=== PATIENT | male | born 1990 | race African-American/Black ===

== ENCOUNTER 2016-12-23 17:18 | Inpatient (IN) | payer OTHER ==
[~2016-12-23] VITALS: Ht 180.3 cm; Wt 81.3 kg
[~2016-12-23 17:18] MED LIST: FLAG500T PO; IBUP100SUS PO; PENI50TA PO; PERCOCET PO; [UNRECOGNIZED DRUG - CODE] PO
[2016-12-23] MEDS ORDERED: METH1CHW3 PO (17:53)
[2016-12-23] MEDS ORDERED: VICO7.5T11 PO (17:53)
[2016-12-23] MEDS ORDERED: CITA20TA4 PO (17:53)
[2016-12-23] MEDS ORDERED: METH20TA29 PO (22:50)
[2016-12-23] MEDS ORDERED: HYDR-3713 PO (22:50)
[2016-12-24 00:44] VITALS: BP 126/68
[2016-12-24] MEDS ORDERED: MAALOX 30 ML SUSP *UDC PO PRN (01:45)
[2016-12-24] MEDS ORDERED: MOM 30ML SUSPENSION UDC PO PRN (01:45)
[2016-12-24] MEDS ORDERED: ACETAMINOPHEN TAB 650MG DOSE (2X325MG) PO PRN (01:45)
[2016-12-24 18:00] VITALS: BP 136/60
[2016-12-24] MEDS: NORCO, ANEXSIA 5/325MG TABLET (HYDROcodone/ACETAMINOPHEN) PO PRN (18:11)
[2016-12-24] MEDS ORDERED: NICOTINE 21MG/24HR 1 EA TRANSDERMAL TD ONE (20:00)
[2016-12-24] MEDS: traZODone 50 MG TAB PO PRN (23:02)
[2016-12-25 06:22] VITALS: BP 184/78
[2016-12-25] MEDS: NICOTINE 21MG/24HR 1 EA TRANSDERMAL TD SCH (08:35)
[2016-12-25] MEDS: LOTRISONE CREAM 15 GM (BETAMETH/CLOTRIMAZOLE) TOP SCH ×2 (08:35→22:15)
[2016-12-25] MEDS: NORCO, ANEXSIA 5/325MG TABLET (HYDROcodone/ACETAMINOPHEN) PO PRN ×2 (08:36→19:25)
[2016-12-25 18:00] VITALS: BP 130/18
--- NOTE | 2016-12-25 22:07 | MHHPE ---
DATE OF ADMISSION: 12/23/2016 DATE OF EVALUATION: 12/24/2016 HISTORY OF PRESENT ILLNESS: This is a 26-year-old man who was admitted. He presented to the emergency room complaining of feeling depressed and having suicidal ideation. The patient presented to the emergency room stating that he had met with Child Protective Services, had it assigned for 2-1/2 weeks ago. It did not go his way because after that he inhaled a bottle of nitrogen to kill himself. He never sought evaluation for that. He says that on the day of admission he went back to court again and at that point again things did not go his way and he said he started to have similar thoughts of harming himself. He was noted to be very guarded, particularly Child Protective Services (CPS) details. Apparently, there is an order of protection regarding his children. Today, he is very guarded and he gives very minimal detail. He was actually lying in bed and then finally he did answer some of my questions, but he was very guarded and would not give any details. He was angry and stated " I just want to go home." He is minimizing everything stating that he never said that he was depressed and he just went to the emergency room to talk to somebody. I could not further get him to elaborate on any more symptoms. I did not seem to elicit any hypomanic or manic-like symptoms in this patient or posttraumatic stress disorder (PTSD) symptoms or obsessive-compulsive disorder (OCD) or panic symptoms. PAST PSYCHIATRIC HISTORY: The patient has never had prior psychiatric hospitalization. He says that he has a history of being treated for attention deficit hyperactivity disorder in the past and I did find records, some which showed that he was seen in 2003 at [facility] by child psychiatrist, Dr. Bob. Attention deficit hyperactivity disorder and oppositional defiant disorder. He was 13 at the time. Currently, he says that he does not see any psychiatrist. He says his primary care provider, Dr. María Elena Bello, treats him for his attention deficit hyperactivity disorder (ADHD) and he is on Adderall. He also states that he is on Celexa 20 mg daily and that was just recently started within this week. The patient says that other than the inhalation of the bottle of nitrogen noted above, which he said in the emergency room was a suicidal attempt, that he has never made any other suicidal attempts. FAMILY HISTORY: There is no psychiatric history in the family and there are no suicidal attempts. MEDICAL HISTORY: The patient says he has chronic back pain and he is prescribed Vicodin by his primary care provider, Dr. María Elena Bello. I did see the sheet from [facility] which showed that on 12/16 he was given a prescription for Vicodin to take it twice a day and he was given #60. ABUSE HISTORY: The patient denies any history of any physical or sexual abuse. SUBSTANCE ABUSE HISTORY: I pointed out to the patient that his toxicology screen was positive for opiate and cocaine and he says "that was only yesterday" that he had used. I do not know how reliable he is being at this point. REVIEW OF SYSTEMS: VITAL SIGNS: Blood pressure 125/68, pulse 56, respirations 20, temperature 97.5. APPEARANCE: Patient was lying in bed with sheets covering him and then eventually he did sit up for a brief period. Hygiene appeared to be fairly intact. NEUROMUSCULAR SYSTEM: I did not observe the gait, but there were no involuntary movements in this patient. All other systems were reviewed and found to be negative. MENTAL STATUS EXAMINATION: This patient is alert and oriented times three. Eye contact is fair. Psychomotor activity is decreased. There is no formal thought disorder noted. His mood is fine. His affect is flat. He is not psychotic. He denies suicidal ideation. I do not know how reliable he is because he is pressing for his discharge. Denying homicidal ideation. His concentration is fair. Memory is intact. Insight and judgment is poor. DIAGNOSES: 1. Adjustment disorder with depressed mood. 2. Suicidal ideations, rule out major depressive disorder. 3. Rule out stimulant use disorder (cocaine). 4. Chronic back pain. TREATMENT PLAN: At this point, the patient will be further observed for suicidal ideations, which he is denying now. He will be monitored for depressive symptoms and hopefully elevated symptoms of depression. We will continue the patient's Celexa 20 mg daily as this was just written. We will continue to monitor him for suicidal ideations, which he is denying now, but I do not know how reliable he is. Right now, the plan will be to discharge him with appropriate followup once stable. DOROTA
--- NOTE | 2016-12-25 22:09 | HPE ---
DATE OF ADMISSION: 12/25/2016 Please refer to the psychiatric history and evaluation for further details on this admission. This examination and history is intended for medical issues which may need treatment, followup, or consult on this 26-year-old male. ALLERGIES: No known drug allergies. PRIMARY CARE PROVIDER: Dr. María Elena Bello. SOCIAL HISTORY: He is single. He lives alone. Ethyl alcohol (EtOH) on weekends. Smokes one-half to one pack of cigarettes per day. Recreational drug use. He used cocaine a couple of times, the first time in years. PAST MEDICAL HISTORY: 1. Chronic back pain, for which he follows with Dr. María Elena Bello. 2. Attention deficit hyperactivity disorder (ADHD). PAST SURGICAL HISTORY: Repair bunionectomy, one on each foot. HOME MEDICATIONS: - hydrocodone/acetaminophen 5/325 one by mouth every 6 hours as needed for pain - Celexa 20 mg by mouth daily - Ritalin 20 mg by mouth twice a day REVIEW OF SYSTEMS: 10-systems review was done. His only complaint, other than chronic back pain, was of some slight athlete's foot. OBJECTIVE: VITAL SIGNS: Stable. Patient is alert and oriented times three. Pupils equal and reactive to light. Extraocular movements are intact. Cornea and sclerae clear. Conjunctivae is normal. No facial asymmetry. Pharynx, tongue, gums pink and moist. Tongue is midline. NECK: Supple without lymphadenopathy. No thyromegaly. No goiter. Carotids 2+ without bruit. CHEST: Clear to auscultation without wheeze or retraction. HEART: Regular. ABDOMEN: Benign. Bowel sounds positive. GENITOURINARY/RECTAL: Not done. EXTREMITIES: Show equal strength. Full range of motion. No cyanosis, clubbing, or edema. Small amount of rash between toes on both feet, no drainage. Peripheral pulses equal and palpable bilaterally. IMPRESSION: 1. Chronic back pain. Continue to followup with primary care provider (PCP). 2. Bilateral tinea pedis. Lotrisone twice a day to feet. 3. Psychiatric plan per psychiatry. No other acute medical issues.
[2016-12-25] MEDS: traZODone 50 MG TAB PO PRN (22:14)
--- NOTE | 2016-12-26 06:13 | IPN ---
DATE: 12/25/2016 The patient today states, "I am doing good". He has no complaints. He says his back pain is better now that he is getting his pain medications. He slept good. He continues to say that he was never suicidal. MENTAL STATUS EXAMINATION: The patient is alert and oriented times three. Eye contact is fair. He is verbally spontaneous. There is no formal thought disorder noted. He says that his mood is good. His affect is flat. He is not psychotic, suicidal or homicidal. Concentration and memory good.. Insight and judgment good. DIAGNOSIS: Adjustment disorder with depressed mood. Suicidal ideations. Rule out major depressive disorder. Rule out stimulant use disorder. TREATMENT PLAN: At this point, the patient will continue to be monitored for continued resolution of suicidal ideations and continued stabilization of his mood.
[2016-12-26 06:54] VITALS: BP 127/60
[2016-12-26] MEDS: NORCO, ANEXSIA 5/325MG TABLET (HYDROcodone/ACETAMINOPHEN) PO PRN ×2 (07:44→19:54)
[2016-12-26] MEDS: NICOTINE 21MG/24HR 1 EA TRANSDERMAL TD SCH (07:45)
[2016-12-26] MEDS: LOTRISONE CREAM 15 GM (BETAMETH/CLOTRIMAZOLE) TOP SCH ×2 (07:46→19:54)
--- NOTE | 2016-12-26 11:28 | IPN ---
DATE: 12/26/2016 Mr. Sousa states to me that he did make a prior suicide attempt. He states he went with his girlfriend Mee to family court due to the custody of her two children. He does not explain well why there was an order of protection on him. She states it was because "My performance at the house". He said he did not help enough. He states "We didn't communicate much". He is presently employed at [employer]. He states three to four weeks ago he inhaled a bottle of nitrogen. Apparently, his girlfriend went to [facility], and an order was put out of protection. He does not explain in any way why she needed an order of protection. He does say he has a bad temper. He states they argued verbally. He states on Monday he was in court again and the protection order was lifted. He states he went to the emergency room for counseling because his previous counselor had charged too much per visit. His primary, Dr. Bello, put him on Celexa on 12/16/2016. His toxicology screen was positive for opiates and cocaine. He states the opiates were due to his use of Vicodin for pain and states he did do cocaine. He states his sleep and appetite are good and he has been with his girlfriend seven years. He said he was removed from his home for one week and states the order has been lifted. IMPRESSION: Explanation of his legal issues and order or protection seem to be not adequate and we will need more information. His mood seems incongruent to his topics of discussion. DIAGNOSIS: Adjustment disorder with depressed mood, deferred at this time until more information is given. No use of significant medications at this time, but will await further information.
[2016-12-26 18:00] VITALS: BP 149/67
[2016-12-26] MEDS: traZODone 50 MG TAB PO PRN (22:31)
[2016-12-27] MEDS: NORCO, ANEXSIA 5/325MG TABLET (HYDROcodone/ACETAMINOPHEN) PO PRN (07:57)
[2016-12-27] MEDS: NICOTINE 21MG/24HR 1 EA TRANSDERMAL TD SCH (07:57)
[2016-12-27] MEDS: LOTRISONE CREAM 15 GM (BETAMETH/CLOTRIMAZOLE) TOP SCH (07:58)
[2016-12-27] MEDS ORDERED: TRAZO50TA PO (09:06)
[2016-12-27] MEDS ORDERED: NICO21PAT TD (11:07)
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
== END 2016-12-27 11:25 | disposition home or self-care (01) | DRG 755 ==
LOC: M ED 18:12 → M ED INP 22:28 → M PSY 12-24 00:45
PROVIDERS: ADMIT Psychiatry & Neurology Psychiatry; ATTEND Psychiatry & Neurology Child & Adolescent Psychiatry
DX: F43.23 Adjustment disorder with mixed anxiety and depressed mood (principal); M54.5 Low back pain; F90.9 Attention-deficit hyperactivity disorder, unspecified type; Z79.899 Other long term (current) drug therapy; B35.3 Tinea pedis

== ENCOUNTER → 2017-04-17 | Outpatient (REF) | payer OTHER ==
[~2017-04-17] MED LIST changes: +CITA20TA4 PO; +HYDR-3713 PO; +METH1CHW3 PO; +METH20TA29 PO; +NICO21PAT TD; +TRAZO50TA PO; +VICO7.5T11 PO
== END ==
LOC: M SMT 12:58
PROVIDERS: ATTEND Urology
DX: Z30.2 Encounter for sterilization (principal)

== ENCOUNTER → 2018-11-28 | Outpatient (REF) | payer OTHER ==
[2018-11-28 18:56] LABS: SEMEN APPEARANCE OPAQUE (OPAQUE); SEMEN VISCOSITY LIQUID (LIQUID); SEMEN VOLUME 1.5 ml (4.0-5.0); WBC CONCENTRATION <=1 M/ml (<=1 M/ml)
== END ==
LOC: M LAB REF 16:04
PROVIDERS: ATTEND Family Medicine
DX: Z98.52 Vasectomy status (principal)

== ENCOUNTER 2019-05-04 17:09 | Emergency (ER) | payer OTHER ==
[~2019-05-04] VITALS: Ht 180.3 cm; Wt 77.9 kg
[~2019-05-04 17:09] MED LIST changes: -CITA20TA4 PO; +CITA20TA6 PO; +IBUP100S44 PO; -IBUP100SUS PO; +OXYC1TAB23 PO; +PENI500T PO; -PENI50TA PO; -PERCOCET PO; +TRAZ1TAB10 PO; -TRAZO50TA PO; -VICO7.5T11 PO; +VICO7.5T12 PO
[2019-05-04 18:31] LABS: BASO % 0.3 % (0.0-1.0); EOS # 0.1 10^3/uL (0.0-0.50); EOS % 1.6 % (0.0-3.0); HEMATOCRIT 46.5 % (42.0-52.0); HEMOGLOBIN 15.2 g/dl (13.5-17.5); LYMPH # 0.9 10^3/uL (1.5-4.5); LYMPH % 15.1 % (24.0-44.0); MEAN CORPUSCULAR HEMOGLOBIN 26.7 pg (27.0-33.0); MEAN CORPUSCULAR HGB CONC 32.7 g/dl (32.0-36.5); MEAN CORPUSCULAR VOLUME 81.6 fl (80.0-96.0); MONO # 0.4 10^3/uL (0.0-0.8); MONO % 6.5 % (0.0-5.0); NEUTROPHILS # 4.7 10^3/uL (1.8-7.7); NEUTROPHILS % 76.2 % (36.0-66.0); PLATELET COUNT, AUTOMATED 232 10^3/uL (150-450); WHITE BLOOD COUNT 6.2 10^3/uL (4.0-10.0)
[2019-05-04 19:14] LABS: ALBUMIN 3.8 GM/DL (3.2-5.2); ALT/SGPT 41 U/L (12-78); BILIRUBIN,DIRECT < 0.1 MG/DL (0.0-0.2); BILIRUBIN,TOTAL 0.2 MG/DL (0.2-1.0); BLOOD UREA NITROGEN 7 MG/DL (7-18); CALCIUM LEVEL 9.3 MG/DL (8.5-10.1); CARBON DIOXIDE LEVEL 30 MEQ/L (21-32); CHLORIDE LEVEL 104 MEQ/L (98-107); CREATININE FOR GFR 1.01 MG/DL (0.70-1.30); GLOMERULAR FILTRATION RATE > 60.0 (>60); GLUCOSE, FASTING 89 MG/DL (70-100); LIPASE 69 U/L (73-393); POTASSIUM SERUM 4.6 MEQ/L (3.5-5.1); SODIUM LEVEL 138 MEQ/L (136-145); TOTAL PROTEIN 7.4 GM/DL (6.4-8.2)
[2019-05-04] MEDS ORDERED: NS 1,000 ML IV ONE (19:15)
[2019-05-04] MEDS ORDERED: FAMOTIDINE INJ 20MG/2ML VIAL (S0028) IVP ONE (19:15)
[2019-05-04] MEDS ORDERED: GI COCKTAIL 50ML BTL(HYOSCYAMINE/MAALOX/LIDOCAINE VISCOUS)(1:3:1) PO ONE (19:30)
[2019-05-04] MEDS ORDERED: SUCRALFATE 1 GM TAB PO ONE (19:30)
[2019-05-04] MEDS ORDERED: PANTOPRAZOLE 40MG INJ (PROTONIX) (C9113) IV ONE (19:30)
[2019-05-04] MEDS ORDERED: SIMETHICONE 80 MG CHEW TAB PO STA (20:14)
[2019-05-04] MEDS ORDERED: ACETAMINOPHEN 325 MG TAB PO ONE (20:45)
[2019-05-04] MEDS ORDERED: SIME180C PO (21:02)
[2019-05-04 21:30] VITALS: BP 123/76
--- NOTE | 2019-05-05 09:48 | REP ---
ACUTE ABDOMINAL SERIES: 05/04/2019. Clinical history: Abdominal pain. Findings: PA chest: Comparison: 11/19/2013. Lungs are well inflated without infiltrate, effusion, atelectasis or mass. The heart, mediastinal and hilar contours are normal. Aorta and airway intact bony thorax unremarkable. No free air under the diaphragm. Flat upright abdomen: Gas pattern is nonspecific. There is some scattered stool and gas without dilatation of colon. I see no dilated small bowel loops, significant air-fluid levels, masses or free air. No abnormal soft tissue calcifications. Bones without acute finding is. Impression: 1. Nonspecific gas pattern without obstruction, mass or free air. No abnormal calcifications. 2. Negative PA chest. Electronically Signed by Bill Hinkle MD 05/05/2019 08:19 P
== END 2019-05-04 21:41 | disposition home or self-care (01) ==
LOC: M ED 17:09
DX: R10.30 Lower abdominal pain, unspecified (principal); F17.210 Nicotine dependence, cigarettes, uncomplicated
CPT/HCPCS: 74021; 80048; 80076; 83690; 85025; 96374; 96375; 99284; C9113

== ENCOUNTER 2019-10-14 09:27 | Emergency (ER) | payer OTHER, SELFPAY ==
[~2019-10-14] VITALS: Ht 180.3 cm; Wt 82.5 kg
[~2019-10-14 09:27] MED LIST changes: +SIME180C PO
[2019-10-14] MEDS ORDERED: HYDR-3713 (09:35)
[2019-10-14] MEDS ORDERED: METH20TA29 (09:35)
--- NOTE | 2019-10-14 11:29 | REP ---
Mode ultrasound for right testicular pain: The right testis measures 4.2 x 2.2 x 2.6 cm. The left testis measures 4.8-0.1 x 2.7 cm. The testes are normal size. There are no testicular masses or cysts. There is vascular flow in both testes. The Doppler resistive index of the right testicular parenchyma is 0.57 and less testicular parenchyma 0.50. The The right epididymal head is unremarkable. However, the right epididymal tail is enlarged and there is hyperemia with color Doppler assessment. There is a 3 mm cyst in the left epididymal head. The tail of the left epididymis is unremarkable. There are small bilateral hydroceles. Impression: Epididymitis in the right epididymal tail. There is vascular flow in both testes. There are no testicular masses or cysts. Electronically Signed by Marvin Dixon MD 10/14/2019 11:22 A
[2019-10-14 11:58] LABS: CHLAMYDIA DNA AMPLIFICATION NEGATIVE (NEGATIVE); GC DNA AMPLIFICATION NEGATIVE (NEGATIVE)
[2019-10-14] MEDS ORDERED: KETOROLAC 60 MG/2 ML VIAL (J1885) IM ONE (12:00)
[2019-10-14 12:11] LABS: BASO # 0.1 10^3/uL (0.0-0.2); BASO % 0.8 % (0.0-1.0); EOS # 0.3 10^3/uL (0.0-0.5); EOS % 3.5 % (0.0-3.0); HEMATOCRIT 43.2 % (42.0-52.0); HEMOGLOBIN 13.9 g/dl (13.5-17.5); LYMPH # 4.3 10^3/uL (1.5-5.0); LYMPH % 45.2 % (24.0-44.0); MEAN CORPUSCULAR HGB CONC 32.2 g/dl (32.0-36.5); MEAN CORPUSCULAR VOLUME 80.7 fl (80.0-96.0); MONO # 0.6 10^3/uL (0.0-0.8); MONO % 6.4 % (0.0-5.0); NEUTROPHILS # 4.2 10^3/uL (1.5-8.5); NEUTROPHILS % 43.9 % (36.0-66.0); PLATELET COUNT, AUTOMATED 321 10^3/uL (150-450); RED BLOOD COUNT 5.35 10^6/uL (4.30-6.10); WHITE BLOOD COUNT 9.5 10^3/uL (4.0-10.0)
[2019-10-14] MEDS ORDERED: KETO10TAB PO (13:20)
[2019-10-14 13:41] VITALS: BP 142/88
[2019-10-14 14:23] LABS: INFLUENZA A AMPLIFICATION NEGATIVE (NEGATIVE); INFLUENZA B AMPLIFICATION NEGATIVE (NEGATIVE)
== END 2019-10-14 13:43 | disposition home or self-care (01) ==
LOC: M ED 09:27
DX: N45.1 Epididymitis (principal); N50.3 Cyst of epididymis
CPT/HCPCS: 76870; 80047; 81001; 85025; 87502; 87661; 93976; 96372; 99283; J1885

== ENCOUNTER 2020-03-15 20:00 | Emergency (ER) | payer SELFPAY ==
[~2020-03-15 20:00] MED LIST changes: +HYDR-3713; +KETO10TAB PO; +METH20TA29
== END 2020-03-15 20:20 | disposition left against medical advice (07) ==
LOC: EDBD 20:00 → M ED 20:00
DX: Z53.21 Procedure and treatment not carried out due to patient leaving prior to being seen by health care provider (principal)

== ENCOUNTER 2020-11-29 21:09 | Emergency (ER) | payer OTHER, SELFPAY ==
[~2020-11-29] VITALS: Ht 180.3 cm; Wt 81.0 kg
[2020-11-29 21:10] VITALS: BP 134/84
[2020-11-29] MEDS ORDERED: AMOX500C PO (21:16)
[2020-11-29] MEDS ORDERED: CETACAINE SPRAY 5GM TOP ONE (22:00)
[2020-11-29] MEDS ORDERED: BUPIVACAINE HCL 0.5% 30 ML VIAL SC ONE (22:00)
[2020-11-29] MEDS ORDERED: LIDOCAINE W/EPINEPHRINE 1% 20ML VIAL SC ONE (22:00)
[2020-11-29] MEDS ORDERED: IBUP-1022 PO (22:52)
[2020-11-29] MEDS ORDERED: HYDR-3715 PO (22:52)
== END 2020-11-29 22:59 | disposition home or self-care (01) ==
LOC: M ED 21:09
DX: K02.9 Dental caries, unspecified (principal); K08.89 Other specified disorders of teeth and supporting structures; M54.5 Low back pain

== ENCOUNTER 2024-11-08 06:48 | Emergency (ER) | payer OTHER ==
[~2024-11-08] VITALS: Ht 177.8 cm; Wt 79.6 kg
[~2024-11-08 06:48] MED LIST changes: +AMOX500C PO; +HYDR-3715 PO; +IBUP-1022 PO; +METH-1103 PO; -METH1CHW3 PO; -SIME180C PO; +SIME1CAP4 PO
[2024-11-08] MEDS: IPRATROPIUM 0.5MG/ALBUTEROL 2.5MG INH SOL UD 3ML (DUONEB) NEB ONE (13:05)
[2024-11-08] MEDS: dexAMETHasone 20MG/5ML VIAL IV ONE (13:12)
[2024-11-08 13:32] LABS: VENOUS BASE EXCESS 0.7 (-2.0-2.0); VENOUS HCO3 27.1 MMOL/L (23.0-27.0); VENOUS O2 SATURATION 79.5 % (60.0-80.0); VENOUS PARTIAL PRESSURE CO2 50.4 mmHg (38.0-50.0); VENOUS PARTIAL PRESSURE O2 44.9 mmHg (30.0-50.0); VENOUS PH 7.349 UNITS (7.330-7.430); VENOUS STANDARD HCO3 24.7 MMOL/L; VENOUS TOTAL CO2 28.7 MMOL/L (24.0-28.0)
[2024-11-08 13:48] LABS: BASO # 0.1 10^3/uL (0.0-0.2); BASO % 1.3 % (0.0-1.0); EOS # 1.2 10^3/uL (0.0-0.5); EOS % 18.1 % (0.0-3.0); HEMATOCRIT 42.6 % (42.0-52.0); HEMOGLOBIN 13.3 g/dl (13.5-17.5); LYMPH # 2.8 10^3/uL (1.5-5.0); LYMPH % 43.7 % (24.0-44.0); MEAN CORPUSCULAR HEMOGLOBIN 24.9 pg (27.0-33.0); MEAN CORPUSCULAR HGB CONC 31.2 g/dl (32.0-36.5); MEAN CORPUSCULAR VOLUME 79.6 fl (80.0-96.0); MONO # 0.3 10^3/uL (0.0-0.8); MONO % 4.9 % (2.0-8.0); NEUTROPHILS % 31.8 % (36.0-66.0); PLATELET COUNT, AUTOMATED 249 10^3/uL (150-450); RED BLOOD COUNT 5.35 10^6/uL (4.30-6.10); WHITE BLOOD COUNT 6.4 10^3/uL (4.0-10.0)
[2024-11-08 13:59] LABS: BLOOD UREA NITROGEN 8 MG/DL (9-23); CALCIUM LEVEL 9.5 MG/DL (8.5-10.1); CARBON DIOXIDE LEVEL 28 MMOL/L (20-31); CHLORIDE LEVEL 107 MMOL/L (98-107); CREATININE FOR GFR 0.89 MG/DL (0.70-1.30); GLOMERULAR FILTRATION RATE > 60.0 (>60); GLUCOSE, FASTING 80 MG/DL (60-100); POTASSIUM SERUM 4.3 MMOL/L (3.5-5.1); SODIUM LEVEL 144 MMOL/L (136-145)
[2024-11-08 14:37] VITALS: BP 109/58; TEMP 96.9; O2SAT 96
[2024-11-08] MEDS ORDERED: VENTAER INH (14:48)
[2024-11-08] MEDS ORDERED: IPRA0.00 NEB (14:48)
[2024-11-08] MEDS ORDERED: FLON1SPR NARES (14:48)
== END 2024-11-08 14:59 | disposition home or self-care (01) ==
LOC: M ED 06:48
DX: J45.901 Unspecified asthma with (acute) exacerbation (principal); R06.00 Dyspnea, unspecified; M54.50 Low back pain, unspecified; F41.9 Anxiety disorder, unspecified; Z87.891 Personal history of nicotine dependence; Z79.52 Long term (current) use of systemic steroids; Z79.899 Other long term (current) drug therapy
CPT/HCPCS: 71046; 80048; 82803; 85025; 85379; 87486; 87581; 87633; 87798; 94640; 96374; 99284; J1100

== ENCOUNTER 2024-11-16 15:45 | Emergency (ER) | payer OTHER ==
[~2024-11-16] VITALS: Ht 180.3 cm; Wt 75.6 kg
[~2024-11-16 15:45] MED LIST changes: +FLON1SPR NARES; +IPRA0.00 NEB; +VENTAER INH
[2024-11-16] MEDS: LIDOCAINE 2% 5ML JELLY UROJET TOP ONE (16:53)
[2024-11-16] MEDS: NS (Normal Saline) 0.9% 1,000 ML IV ONE (16:56)
[2024-11-16 17:10] LABS: BASO # 0.1 10^3/uL (0.0-0.2); BASO % 1.1 % (0.0-1.0); EOS # 1.4 10^3/uL (0.0-0.5); EOS % 14.3 % (0.0-3.0); HEMATOCRIT 43.1 % (42.0-52.0); HEMOGLOBIN 13.9 g/dl (13.5-17.5); LYMPH # 1.9 10^3/uL (1.5-5.0); LYMPH % 19.8 % (24.0-44.0); MEAN CORPUSCULAR HEMOGLOBIN 25.7 pg (27.0-33.0); MEAN CORPUSCULAR HGB CONC 32.3 g/dl (32.0-36.5); MEAN CORPUSCULAR VOLUME 79.7 fl (80.0-96.0); MONO # 0.4 10^3/uL (0.0-0.8); MONO % 4.1 % (2.0-8.0); NEUTROPHILS # 5.9 10^3/uL (1.5-8.5); NEUTROPHILS % 60.5 % (36.0-66.0); PLATELET COUNT, AUTOMATED 247 10^3/uL (150-450); RED BLOOD COUNT 5.41 10^6/uL (4.30-6.10); WHITE BLOOD COUNT 9.8 10^3/uL (4.0-10.0)
[2024-11-16 17:16] LABS: ETHYL ALCOHOL (ETHANOL) < 0.003 % (0.000-0.010)
[2024-11-16 17:18] LABS: ALBUMIN 4.2 G/DL (3.2-5.2); ALKALINE PHOSPHATASE 125 U/L (40-129); ALT/SGPT 18 U/L (7.0-40); AST/SGOT 19 U/L (<34); BILIRUBIN,DIRECT 0.2 MG/DL (<0.4); BILIRUBIN,TOTAL 0.5 MG/DL (0.3-1.2); BLOOD UREA NITROGEN 9 MG/DL (9-23); CARBON DIOXIDE LEVEL 25 MMOL/L (20-31); CHLORIDE LEVEL 103 MMOL/L (98-107); CREATININE FOR GFR 0.93 MG/DL (0.70-1.30); GLOMERULAR FILTRATION RATE > 60.0 (>60); GLUCOSE, FASTING 163 MG/DL (60-100); POTASSIUM SERUM 4.2 MMOL/L (3.5-5.1); SALICYLATE LEVEL < 3.0 MG/DL (<30); SODIUM LEVEL 140 MMOL/L (136-145); TOTAL PROTEIN 7.5 G/DL (5.7-8.2)
[2024-11-16 17:20] LABS: THYROID STIMULATING HORMONE 0.588 uIU/ML (0.55-4.78)
[2024-11-16 17:39] LABS: AMPHETAMINES LEVEL URINE NEGATIVE (NEGATIVE); BARBITURATES URINE NEGATIVE (NEGATIVE); CANNABINOIDS URINE NEGATIVE (NEGATIVE); COCAINE METABOLITE URINE NEGATIVE (NEGATIVE); METHADONE URINE NEGATIVE (NEGATIVE); PHENCYCLIDINE URINE NEGATIVE (NEGATIVE)
[2024-11-16 17:40] LABS: BENZODIAZEPINES URINE NEGATIVE (NEGATIVE)
[2024-11-16 17:42] LABS: OPIATES URINE POSITIVE (NEGATIVE)
[2024-11-16] MEDS: ONDANSETRON 4MG 2ML VIAL IV ONE (18:20)
[2024-11-16] MEDS ORDERED: FLON1SPR NARES (21:11)
[2024-11-16] MEDS ORDERED: VENTAER INH (21:11)
[2024-11-16] MEDS ORDERED: IPRA0.00 INH (21:11)
[2024-11-16] MEDS ORDERED: HOME MED LIST COMPLETE! XX SCH (21:15)
[2024-11-17 04:33] VITALS: BP 135/71; TEMP 99.9; O2SAT 94
[2024-11-17] MEDS: ALPRAZolam 0.5 MG TAB PO ONE (04:33)
== END 2024-11-17 09:23 | disposition home or self-care (01) ==
LOC: M ED 15:45
DX: T40.1X1A Poisoning by heroin, accidental (unintentional), initial encounter (principal); F19.10 Other psychoactive substance abuse, uncomplicated; I45.10 Unspecified right bundle-branch block; R00.1 Bradycardia, unspecified; J45.909 Unspecified asthma, uncomplicated; F41.9 Anxiety disorder, unspecified; F17.200 Nicotine dependence, unspecified, uncomplicated; Z79.52 Long term (current) use of systemic steroids; Z79.899 Other long term (current) drug therapy
CPT/HCPCS: 51701; 80047; 80048; 80076; 80143; 80307; 82077; 84443; 85025; 93005; 93041; 94760; 96374; 99285; J2405